=== PATIENT | male | born 1965 | race Caucasian/White ===

== ENCOUNTER 2018-05-10 19:08 | Emergency (ER) | payer OTHER ==
[2018-05-10] MEDS ORDERED: Albuterol 6.7 GM Inhaler INH ONE ×2 (19:09→23:22)
[2018-05-10] MEDS ORDERED: Nitroglycerin 0.4 MG Tab.SL SL ONE (19:22)
[2018-05-10] MEDS ORDERED: Aspirin 81 MG Tab.Chew PO ONE (19:22)
[2018-05-10] MEDS ORDERED: Ondansetron 4 MG/2 ML SDV IV ONE (19:31)
--- NOTE | 2018-05-10 19:36 | EDM.PDOC ---
ED HPI GENERAL MEDICAL PROBLEM - General Chief Complaint: Chest Pain Stated Complaint: CHEST PAINS Time Seen by Provider: 05/10/18 19:20 Source of Information: Reports: Patient History Limitations: Reports: No Limitations - History of Present Illness INITIAL COMMENTS - FREE TEXT/NARRATIVE: c/o sudden onset left chest pain after eating. worse with movement and deep breath, Seen for cough 2 weeks ago.Not improved. HX asthma. Cough productive since, thick yellow sputum. No similar pain, hx HTN. No nausea or vomiting with onset of pain. No recent fever or chills. Left Anterior Chest Pain Score (Numeric/FACES): 7 - Related Data Allergies Allergy/AdvReac Type Severity Reaction Status Date / Time bee venom protein (honey bee) Allergy Hives Verified 05/10/18 19:27 Social & Family History - Tobacco Use Smoking Status *Q: Former Smoker Used Tobacco, but Quit: No Second Hand Smoke Exposure: No - Caffeine Use Caffeine Use: Reports: Coffee, Energy Drinks - Recreational Drug Use Recreational Drug Use: No ED ROS GENERAL - Review of Systems Review Of Systems: ROS reveals no pertinent complaints other than HPI. ED EXAM, GENERAL - Physical Exam Exam: See Below Exam Limited By: No Limitations General Appearance: Alert, Moderate Distress, Obese (morbid) Eye Exam: Bilateral Eye: EOMI Ears: Normal External Exam, Hearing Grossly Normal Nose: Normal Inspection Throat/Mouth: Normal Inspection, Normal Lips Head: Atraumatic, Normocephalic Neck: Normal Inspection, Full Range of Motion Respiratory/Chest: No Respiratory Distress, Lungs Clear, Decreased Breath Sounds (bases), Other (point tenderness 4th intercostal lateral clavicular line , increase with mvement and deep breathing) Cardiovascular: Normal Peripheral Pulses, Regular Rate, Rhythm. No: No Edema ( trace pedal) GI/Abdominal: Normal Bowel Sounds, Soft Back Exam: Normal Inspection Extremities: Normal Inspection, Normal Range of Motion Neurological: Alert, Oriented, Normal Cognition Psychiatric: Anxious Skin Exam: Warm, Dry, Intact, Normal Color Course - Vital Signs Last Recorded V/S: Last Vital Signs Temp 98.2 F 05/10/18 20:09 Pulse 74 05/10/18 20:09 Resp 19 05/10/18 20:09 BP 103/71 05/10/18 20:09 Pulse Ox 99 05/10/18 20:09 - Orders/Labs/Meds Orders: Active Orders 24 hr Category Date Time Status EKG 12 Lead [EKG Documentation Completion] [RC] ROUTINE Care 05/10/18 23:15 Active EKG 12 Lead [EKG Documentation Completion] [RC] URGENT Care 05/10/18 19:22 Active RT Aerosol Therapy [RC] ASDIRECTED Care 05/10/18 19:38 Active CXR [Chest 1V Frontal] [CR] Urgent Exams 05/10/18 19:21 Taken Labs: Laboratory Tests 05/10/18 05/10/18 05/10/18 Range/Units 19:15 19:15 19:15 WBC 10.6 H (5.0-10.0) 10^3/uL RBC 5.27 (4.6-6.2) 10^6/uL Hgb 14.0 (14.0-18.0) g/dL Hct 42.0 (40.0-54.0) % MCV 79.7 L (80-100) fL MCH 26.6 L (27.0-34.0) pg MCHC 33.3 (33.0-35.0) g/dL Plt Count 285 (150-450) 10^3/uL Neut % (Auto) 67.2 (42.2-75.2) % Lymph % (Auto) 23.8 (20.5-50.1) % [place] % (Auto) 5.1 (2-8) % Eos % (Auto) 3.3 H (1.0-3.0) % Baso % (Auto) 0.6 (0.0-1.0) % PT (9.0-12.0) SEC INR (0.9-1.2) D-Dimer, Quantitative 110 (0-400) ng/mL Sodium 139 (135-145) mmol/L Potassium 3.7 (3.6-5.0) mmol/L Chloride 99 L (101-111) mmol/L Carbon Dioxide 33.0 H (21.0-31.0) mmol/L Anion Gap 10.7 BUN 11 (7-18) mg/dL Creatinine 1.0 (0.6-1.3) mg/dL Est Cr Clr Drug Dosing 79.75 mL/min Estimated GFR (MDRD) > 60 BUN/Creatinine Ratio 11.00 Glucose 111 H (74-105) mg/dL Calcium 9.2 (8.4-10.2) mg/dl Total Bilirubin 0.5 (0.2-1.0) mg/dL AST 27 (10-42) IU/L ALT 20 (10-60) IU/L Alkaline Phosphatase 62 (42-121) IU/L CK-MB (CK-2) (0.4-4.7) ng/mL Troponin I < 0.02 (0.00-0.02) ng/ml Total Protein 7.5 (6.7-8.2) g/dl Albumin 3.9 (3.2-5.5) g/dl Globulin 3.6 Albumin/Globulin Ratio 1.08 Amylase 78 (28-100) U/L Lipase 28 (22-51) U/L 05/10/18 05/10/18 05/10/18 Range/Units 19:15 19:15 22:44 WBC (5.0-10.0) 10^3/uL RBC (4.6-6.2) 10^6/uL Hgb (14.0-18.0) g/dL Hct (40.0-54.0) % MCV (80-100) fL MCH (27.0-34.0) pg MCHC (33.0-35.0) g/dL Plt Count (150-450) 10^3/uL Neut % (Auto) (42.2-75.2) % Lymph % (Auto) (20.5-50.1) % [place] % (Auto) (2-8) % Eos % (Auto) (1.0-3.0) % Baso % (Auto) (0.0-1.0) % PT 10.1 (9.0-12.0) SEC INR 1.0 (0.9-1.2) D-Dimer, Quantitative (0-400) ng/mL Sodium (135-145) mmol/L Potassium (3.6-5.0) mmol/L Chloride (101-111) mmol/L Carbon Dioxide (21.0-31.0) mmol/L Anion Gap BUN (7-18) mg/dL Creatinine (0.6-1.3) mg/dL Est Cr Clr Drug Dosing mL/min Estimated GFR (MDRD) BUN/Creatinine Ratio Glucose (74-105) mg/dL Calcium (8.4-10.2) mg/dl Total Bilirubin (0.2-1.0) mg/dL AST (10-42) IU/L ALT (10-60) IU/L Alkaline Phosphatase (42-121) IU/L CK-MB (CK-2) 2.10 (0.4-4.7) ng/mL Troponin I < 0.02 (0.00-0.02) ng/ml Total Protein (6.7-8.2) g/dl Albumin (3.2-5.5) g/dl Globulin Albumin/Globulin Ratio Amylase (28-100) U/L Lipase (22-51) U/L Meds: Medications Discontinued Medications Generic Name Dose Route Start Last Admin Trade Name Freq PRN Reason Stop Dose Admin Albuterol/Ipratropium 3 ml 05/10/18 19:38 05/10/18 19:42 Duoneb 3.0-0.5 Mg/3 Ml NEB 05/10/18 19:39 3 ml ONETIME ONE Administration Aspirin 324 mg 05/10/18 19:22 05/10/18 19:35 Aspirin PO 05/10/18 19:23 324 mg ONETIME ONE Administration Morphine Sulfate 2 mg 05/10/18 20:15 05/10/18 20:22 Morphine IVPUSH 05/10/18 20:16 2 mg ONETIME ONE Administration Morphine Sulfate 2 mg 05/10/18 22:41 05/10/18 22:50 Morphine IVPUSH 05/10/18 22:42 2 mg ONETIME ONE Administration Nitroglycerin 0.4 mg 05/10/18 19:22 05/10/18 19:43 Nitrostat SL 05/10/18 19:23 0.4 mg ONETIME ONE Administration Ondansetron HCl 4 mg 05/10/18 19:31 05/10/18 19:34 Zofran IV 05/10/18 19:32 4 mg ONETIME ONE Administration - Radiology Interpretation Free Text/Narrative:: [facility] Final Radiology Report Call: [phone] assistance Online chat: [email or web address] Name: ELVIRA SMALLS Age: 52Years M Date: 05/10/2018 SSN: -- : [id number] Study: XR CHEST 1 VIEW Requesting Physician: AURELIA PATE Images: 1 Addl Studies: Provided Clinical History: no prior exams for comparison Contrast: Contrast Medium: Contrast Amount: Contrast Method: CONFIDENTIALITY STATEMENT This report is intended only for use by the referring physician, and only in accordance with law. If you received this in error, call [phone]. Page 1 of 1 EXAM: XR Chest, 1 View CLINICAL HISTORY: 52 years old, male; Pain; Chest pain; Type not specified; Additional info: No prior exams for comparison TECHNIQUE: Frontal view of the chest. COMPARISON: No relevant prior studies available. FINDINGS: Lungs: Unremarkable. No consolidation. Pleural space: Unremarkable. No pneumothorax. Heart: Unremarkable. No cardiomegaly. Mediastinum: Unremarkable. Bones/joints: Unremarkable. IMPRESSION: No acute cardiopulmonary process. Thank you for allowing us to participate in the care of your patient. Dictated and Authenticated by: Bill Ordoñez MD 05/10/2018 8:00 PM Central Time ([place] & [place]) - Re-Assessments/Exams Free Text/Narrative Re-Assessment/Exam: 05/11/18 01:17 Intermittent dozing. Sleep apnea, improved with repositioning. Pain remoins point tender worse with movment and deep breathing. No cough noted during ED. Repeat EKG NSR unchanged from previous. Initial and repeat troponin negative. Results discussed with patient. Departure - Departure Time of Disposition: 23:13 Disposition: Home, Self-Care 01 Condition: Good Clinical Impression: Costochondral chest pain Instructions: Nonspecific Chest Pain, [id number], Costochondritis Forms: ED Department Discharge Additional Instructions: bland low fat diet alternate tylenol 650mg and ibuprofen 600mg every 4 hours ass need for chest pain with movement warm pack to area follow up if worsening, shortness of breath or weakness albuterol inhaler 2 puffs every 4 hours as needed for cough wheeze - My Orders Last 24 Hours: My Active Orders 05/10/18 19:21 CXR [Chest 1V Frontal] [CR] Urgent 05/10/18 19:22 EKG 12 Lead [EKG Documentation Completion] [RC] URGENT 05/10/18 19:38 RT Aerosol Therapy [RC] ASDIRECTED 05/10/18 23:15 EKG 12 Lead [EKG Documentation Completion] [RC] ROUTINE - Assessment/Plan Last 24 Hours: My Active Orders 05/10/18 19:21 CXR [Chest 1V Frontal] [CR] Urgent 05/10/18 19:22 EKG 12 Lead [EKG Documentation Completion] [RC] URGENT 05/10/18 19:38 RT Aerosol Therapy [RC] ASDIRECTED 05/10/18 23:15 EKG 12 Lead [EKG Documentation Completion] [RC] ROUTINE
[2018-05-10] MEDS ORDERED: Albuterol/Ipratropium 3.0-0.5 MG/3 ML Neb Soln NEB ONE (19:38)
[2018-05-10 19:42] LABS: ANION GAP 10.7; CHLORIDE,CL 99 mmol/L (101-111); SODIUM,NA 139 mmol/L (135-145)
[2018-05-10] MEDS ORDERED: Morphine 4 MG/ML Syringe IVPUSH ONE ×2 (20:15→22:41)
== END 2018-05-10 23:30 | disposition home or self-care (01) ==
LOC: DL.ED 19:08
DX: R07.1 Chest pain on breathing (principal); E66.01 Morbid (severe) obesity due to excess calories; I10 Essential (primary) hypertension; Z91.030 Bee allergy status; Z87.891 Personal history of nicotine dependence
CPT/HCPCS: 36415; 71045; 80053; 82150; 82553; 83690; 84484; 85025; 85379; 85610; 93005; 96374; 96375; 96376; 99285; A9270; J2270; J2405; J7620-GY